=== PATIENT | male | born 1930 | race Caucasian/White ===

== ENCOUNTER 2019-08-29 20:46 | Observation (INO) | payer MEDICARE, BC ==
[2019-08-29] MEDS ORDERED: Sodium Chloride 0.9% 10 ML Syringe FLUSH PRN (21:01)
--- NOTE | 2019-08-29 21:04 | EDM.PDOC ---
ED HPI GENERAL MEDICAL PROBLEM - General Chief Complaint: Neuro Symptoms/Deficits Stated Complaint: DISORIENTED Time Seen by Provider: 08/29/19 20:52 Source of Information: Reports: Patient, Family History Limitations: Reports: Altered Mental Status - History of Present Illness INITIAL COMMENTS - FREE TEXT/NARRATIVE: Patient is brought by family members who described recent onset of slurred speech, loss of awareness of surroundings, disorientation. His last known well time was 1900 hrs. tonight. He's had no episodes like this previously. He had apparently gone outside, he says to go to their chicken coop, but was found seated on a garbage can away from that structure. Family members felt that the patient had slurred speech when they found him. Details of the event are not able to be recalled by the patient. He denies any other recent physical changes. Arm and leg strength seems usual for him. He does have a previous history of an ischemic stroke. He ate dinner at 1400 hrs. today uneventfully. No recent trauma. No medication changes. Family members have accompanied him but are not in the room at this time. Onset: Today, Sudden Duration: Hour(s): (one) Location: Reports: Generalized Improves with: Reports: None Worsens with: Reports: None Associated Symptoms: Reports: Confusion - Related Data Allergies Allergy/AdvReac Type Severity Reaction Status Date / Time clopidogrel bisulfate Allergy Cannot Verified 08/30/19 00:04 [From Plavix] Remember Iodinated Contrast Media Allergy Cannot Verified 08/30/19 00:04 [Iodinated Contrast Media - Remember IV Dye] latex Allergy Other Verified 08/30/19 00:04 Penicillins Allergy Cannot Verified 08/30/19 00:04 Remember Home Meds: Home Meds Aspirin 325 mg PO DAILY 08/13/13 [History] Isosorbide Mononitrate [Imdur] 60 mg PO DAILY 08/13/13 [History] Lisinopril 5 mg PO DAILY 08/13/13 [History] atorvaSTATin [Lipitor] 80 mg PO BEDTIME 08/13/13 [History] Past Medical History HEENT History: Reports: Hard of Hearing, Impaired Vision Other HEENT History: wears glasses Cardiovascular History: Reports: Bypass, High Cholesterol, Hypertension, IN Gastrointestinal History: Reports: GI Bleed, Hemorrhoids Musculoskeletal History: Reports: Arthritis, Back Pain, Chronic, Osteoarthritis , Other (See Below) Other Musculoskeletal History: bilateral knee pain Neurological History: Reports: CVA Endocrine/Metabolic History: Reports: Diabetes, Type II - Infectious Disease History Infectious Disease History: Reports: Chicken Pox, Measles, Mumps - Past Surgical History Cardiovascular Surgical History: Reports: Coronary Artery Bypass Neurological Surgical History: Reports: Lumbar Spine Musculoskeletal Surgical History: Reports: Other (See Below) Social & Family History - Family History Family Medical History: Noncontributory - Caffeine Use Caffeine Use: Reports: None ED ROS GENERAL - Review of Systems Review Of Systems: See Below Constitutional: Reports: No Symptoms Respiratory: Reports: No Symptoms Cardiovascular: Reports: No Symptoms Musculoskeletal: Reports: No Symptoms Neurological: Reports: Trouble Speaking, Difficulty Walking, Weakness (May be) Psychiatric: Reports: Confusion ED EXAM, NEURO - Physical Exam Exam: See Below Text/Narrative:: This is a composed adult male in the bed in room 3. He is somewhat hard of hearing but is able to answer my questions with only some hesitation. Exam Limited By: Altered Mental Status (Forgetfulness.) General Appearance: No Apparent Distress Eye Exam: Bilateral Eye: EOMI, Normal Fundi, Normal Inspection, PERRL Nose: Normal Inspection Throat/Mouth: Normal Inspection Respiratory/Chest: No Respiratory Distress Cardiovascular: Regular Rate, Rhythm Neurological: Oriented x 3 Back Exam: Normal Inspection Psychiatric: Normal Affect *Q Meaningful Use (ADM) - VTE *Q VTE Mechanical Contraindications *Q: At Risk for Falls VTE Pharmacological Contraindications *Q: Risk of Bleeding - VTE Risk Assess *Q Each Risk Factor Represents 3 Points: Age 75 Years or Greater Total Score 3 Point Risk Factors: 3 Course - Vital Signs Last Recorded V/S: Last Vital Signs Temp 35.7 C L 08/29/19 20:54 Pulse 67 08/29/19 23:54 Resp 16 08/29/19 20:54 BP 161/68 H 08/29/19 23:54 Pulse Ox 98 08/29/19 23:54 - Orders/Labs/Meds Orders: Active Orders 24 hr Category Date Time Status Patient Status [ADT] Routine ADT 08/29/19 23:24 Active Cardiac Monitoring [RC] Q6H Care 08/29/19 23:26 Active Oxygen Therapy [RC] PRN Care 08/29/19 23:24 Active Up With Assistance [RC] ASDIRECTED Care 08/29/19 23:24 Active VTE/DVT Education [RC] Per Unit Routine Care 08/29/19 23:24 Active Vital Signs [RC] Q4H Care 08/29/19 23:24 Active PT Evaluation and Treatment [CONS] Routine Cons 08/29/19 23:24 Active Consistent Carbohydrate Diet [DIET] Diet 08/29/19 Breakfast Active Acetaminophen [Tylenol] Med 08/29/19 23:24 Active 650 mg PO Q4H PRN Aspirin [Ecotrin] Med 08/30/19 09:00 Active 325 mg PO DAILY Isosorbide Mononitrate [Imdur] Med 08/30/19 09:00 Active 60 mg PO DAILY Sodium Chloride 0.9% [Normal Saline] 1,000 ml Med 08/29/19 23:30 Active IV ASDIRECTED Sodium Chloride 0.9% [Saline Flush] Med 08/29/19 21:01 Active 10 ml FLUSH ASDIRECTED PRN atorvaSTATin [Lipitor] Med 08/30/19 21:00 Active 80 mg PO BEDTIME lisinopriL [Prinivil] Med 08/30/19 09:00 Active 5 mg PO DAILY Saline Lock Insert [OM.PC] Routine Oth 08/29/19 21:01 Ordered Resuscitation Status Routine Resus Stat 08/29/19 23:24 Ordered EKG 12 Lead [EK] Routine Ther 08/29/19 20:59 Ordered Medication Orders Acetaminophen (Tylenol) 650 mg PO Q4H PRN PRN Reason: Pain (Mild 1-3)/fever Aspirin (Ecotrin) 325 mg PO DAILY [facility] Atorvastatin Calcium (Lipitor) 80 mg PO BEDTIME OWEN Sodium Chloride (Normal Saline) 1,000 mls @ 75 mls/hr IV ASDIRECTED OWEN Last Admin: 08/30/19 00:50 Dose: 75 mls/hr Isosorbide Mononitrate (Imdur) 60 mg PO DAILY [facility] Lisinopril (Prinivil) 5 mg PO DAILY OW[facility] Sodium Chloride (Saline Flush) 10 ml FLUSH ASDIRECTED PRN PRN Reason: Keep Vein Open Labs: Laboratory Tests 08/29/19 08/29/19 08/29/19 Range/Units 21:19 21:19 21:19 WBC 6.0 (4.5-11.0) K/uL RBC 3.54 L (4.30-5.90) M/uL Hgb 10.9 L (12.0-15.0) g/dL Hct 33.5 L (40.0-54.0) % MCV 95 (80-98) fL MCH 31 (27-31) pg MCHC 33 (32-36) % Plt Count 163 (150-400) K/uL Neut % (Auto) 41 (36-66) % Lymph % (Auto) 32 (24-44) % Gillespie % (Auto) 26 H (2-6) % Eos % (Auto) 1 L (2-4) % Baso % (Auto) 0 (0-1) % PT 11.3 (9.5-12.0) sec INR 1.05 (0.80-1.20) Sodium 137 L (140-148) mmol/L Potassium 4.7 (3.6-5.2) mmol/L Chloride 103 (100-108) mmol/L Carbon Dioxide 24 (21-32) mmol/L Anion Gap 14.7 H (5.0-14.0) mmol/L BUN 40 H (7-18) mg/dL Creatinine 1.5 H (0.8-1.3) mg/dL Est Cr Clr Drug Dosing 30.72 mL/min Estimated GFR (MDRD) 44 L (>60) Glucose 88 (74-106) mg/dL Calcium 8.6 (8.5-10.1) mg/dL Total Bilirubin 0.5 (0.2-1.0) mg/dL AST 15 (15-37) U/L ALT 26 (12-78) U/L Alkaline Phosphatase 103 (46-116) U/L Total Protein 6.9 (6.4-8.2) g/dL Albumin 3.5 (3.4-5.0) g/dL Globulin 3.4 (2.3-3.5) g/dL Albumin/Globulin Ratio 1.0 L (1.2-2.2) Meds: Medications Generic Name Dose Route Start Last Admin Trade Name Freq PRN Reason Stop Dose Admin Acetaminophen 650 mg 08/29/19 23:24 Tylenol PO Q4H PRN Pain (Mild 1-3)/fever Aspirin 325 mg 08/30/19 09:00 Ecotrin PO DAILY [facility] Atorvastatin Calcium 80 mg 08/30/19 21:00 Lipitor PO BEDTIME OWEN Sodium Chloride 1,000 mls @ 75 mls/hr 08/29/19 23:30 08/30/19 00:50 Normal Saline IV 75 mls/hr ASDIRECTED OWEN Administration Isosorbide Mononitrate 60 mg 08/30/19 09:00 Imdur PO DAILY [facility] Lisinopril 5 mg 08/30/19 09:00 Prinivil PO DAILY [facility] Sodium Chloride 10 ml 08/29/19 21:01 Saline Flush FLUSH ASDIRECTED PRN Keep Vein Open - Re-Assessments/Exams Free Text/Narrative Re-Assessment/Exam: 08/29/19 21:05 The patient states that the year is 1999, month is August, date is , day of the week is Thursday, President is [place]. An urgent noncontrast head CT scan will be obtained. Additional information to be obtained from family members. He will be considered a stroke patient. 08/29/19 21:06 08/30/19 03:[address] scan of the head showed no acute changes. A daughter is now present in the room and she states that when she initially came in the room, he did not recognize her. He now seems more like his usual neurologic self but from her assessment, something is still "off." I discussed with him that he likely had some type of TIA. I recommend that he be admitted for further monitoring and possibly additional imaging studies tomorrow. He is agreeable to admission. Case was reviewed with hospitalist general production worker who will arrange admission and further care. Departure - Departure Time of Disposition: 22:39 Disposition: Admitted As Inpatient 67 Condition: Good Clinical Impression: TIA (transient ischemic attack) - Discharge Information Sepsis Event Note - Evaluation Sepsis Screening Result: No Definite Risk - Focused Exam Vital Signs: Vital Signs Temp Pulse Resp BP Pulse Ox 08/29/19 23:24 66 201/84 H 97 08/29/19 22:45 63 181/67 H 08/29/19 21:57 64 186/68 H 08/29/19 21:36 64 164/72 H 08/29/19 20:54 35.7 C L 63 16 169/70 H 92 L Date Exam was Performed: 08/30/19 Time Exam was Performed: 02:56 - My Orders Last 24 Hours: My Active Orders 08/29/19 20:59 EKG 12 Lead [EK] Routine 08/29/19 21:01 Sodium Chloride 0.9% [Saline Flush] 10 ml FLUSH ASDIRECTED PRN Saline Lock Insert [OM.PC] Routine - Assessment/Plan Last 24 Hours: My Active Orders 08/29/19 20:59 EKG 12 Lead [EK] Routine 08/29/19 21:01 Sodium Chloride 0.9% [Saline Flush] 10 ml FLUSH ASDIRECTED PRN Saline Lock Insert [OM.PC] Routine
--- NOTE | 2019-08-29 21:28 | CRLCT ---
INDICATION: Disoriented TECHNIQUE: Head CT without contrast. COMPARISON: None FINDINGS: CSF spaces: Within normal limits for age. Brain parenchyma and extra-axial spaces: There are nonspecific low attenuation white matter changes consistent with chronic microvascular disease. Small chronic lacunar infarcts are in the basal ganglia. No sign of mass, hemorrhage, or midline shift. Skull base and calvarium: The visualized paranasal sinuses and mastoid air cells demonstrate no acute or significant findings. The visualized orbits are grossly unremarkable. No skull fractures. IMPRESSION: No acute or significant findings.No sign of acute CVA or hemorrhage. Dictated by Anil Leger MD @ 08/29/2019 9:27:25 PM Please note that all CT scans at this facility use dose modulation, iterative reconstruction, and/or weight-based dosing when appropriate to reduce radiation dose to as low as reasonably achievable. Dictated by: Anil Leger MD @ 08/29/2019 21:27:46 (Electronically Signed)
[2019-08-29] MEDS ORDERED: Acetaminophen 325 MG Tab PO PRN (23:24)
--- NOTE | 2019-08-30 00:41 | HP ---
CHIEF COMPLAINT: Confusion. HISTORY OF PRESENT ILLNESS: This is an 89-year-old who was at home, apparently all of a sudden was confused. Normally, he walks with crutches, had sustained a long-standing injury to his back, but forgot to use his crutches and tried to walk, and he ended up resting and actually fell into a garbage can. He had a couple of episodes where he fell within the last week to week and a half and was confused, but then did get back to his baseline. He was confused, did not really know what he was doing. Apparently, his family said that he was slurring his speech, although it sounds like it is back to his baseline now. It sounds like he has had previous stroke in the past with left-sided involvement, was brought into the emergency room for further evaluation. He was evaluated by the emergency room physician. By the time he was here, he was acting his normal self and was able to answer questions. Initially, when he did arrive, he did not recognize his daughter, but then now he does. He denied any pain. No chest pain or trouble breathing. PAST MEDICAL HISTORY: 1. History of I believe a couple of strokes in the past with left-sided involvement. Within the last week, he has had a couple of similar episodes of this. They did not bring him in, that he had fallen and was confused. 2. Coronary artery disease. Also he has had open-heart surgery. 3. Type 2 diabetes mellitus that they are controlling with diet. 4. Injury to his back and ever since then, he has used crutches for years. CURRENT MEDICATIONS: Aspirin 325 mg daily, atorvastatin 80 mg at bedtime, isosorbide 60 mg daily, and lisinopril 5 mg daily. ALLERGIES: CLOPIDOGREL, IODINATED CONTRAST MATERIAL, LATEX, AND PENICILLIN. SOCIAL HISTORY: Never smoked. No alcohol use. FAMILY HISTORY: He does not really know. Daughter does not really know. He does not think that anybody has had strokes. REVIEW OF SYSTEMS: Denies headaches, vision changes, or upper respiratory symptoms. No chest pain, shortness of breath, or cough. No nausea, vomiting, diarrhea, or constipation. No urinary problems reported. No swelling in his legs. No skin problems. NEUROLOGIC: He states that his legs felt weak. He thought it was both. PHYSICAL EXAMINATION: VITAL SIGNS: Weight 70 kg, temp 35.7, pulse 63, blood pressure 169/70, respirations 16, and O2 saturation 92% on room air. NEUROLOGIC: The patient is hard of hearing, but otherwise seems to be alert and oriented at this point. When he first arrived, he was confused as to who the president was. He did not recognize his daughter, but now he does. Cranial nerves 2 through 12 are grossly intact, other than he is hard of hearing. He did have weakness to his left arm, but his daughter states that this is pretty much his baseline. Hdosam-sosb-rhiecv was slower and weaker on the left side compared to the right, which was intact. Agent Producer strength to both hands was equal and intact. Dorsiflexion and plantar flexion of his ankle were full and symmetric bilaterally. ENT: Ears are clear other than just a small amount of wax. Pharynx is clear with no dentition. NECK: Supple. No adenopathy, thyromegaly, JVD, or bruits. LUNGS: Clear. HEART: Regular without murmurs. ABDOMEN: Soft and nontender. No mass or organomegaly palpated. EXTREMITIES: No edema. Apparently has a sore on the bottom of his right foot that he is seeing Podiatry for. SKIN: Otherwise unremarkable. IMAGING: CT scan of his brain was unremarkable with no acute findings. LABORATORY DATA: White count was 6.0, hemoglobin 10.9, and platelets 163,000. PT was 11.3 with an INR of 1.05. Sodium 137, potassium 4.7, chloride 103, BUN was 40, creatinine 1.5, and glucose 88. Liver functions were normal. ASSESSMENT: 1. Confusion with weakness with previous strokes in the past. He seems to be back to his baseline according to his daughter. It sounds like he has probably had a TIA, and maybe has had a couple of other episodes earlier this week. He does take aspirin, which we will continue. It looks like he is allergic to Plavix. We will admit him under observation and watch him overnight. I will have Physical Therapy see him in the morning if possible. Otherwise, we will continue with the current medications. 2. Type 2 diabetes mellitus, diet controlled. 3. Coronary artery disease, status post open heart surgery in the past. I am not sure exactly what they did. It is just per patient report. 4. History of a couple of strokes in the past that I believe was essentially evaluated in [place] and also in the [facility]. I did talk to him about Code Status, and they do desire full code at this time. We will admit him under observation. Anticipate less than 2 midnight stays. Chau Hudson MD /[phone]
[2019-08-30] MEDS: Sodium Chloride 0.9% 1,000 ML IV SCH ×2 (00:50→12:28)
[2019-08-30] MEDS: Aspirin 325 MG Tab.EC PO SCH (08:29)
[2019-08-30] MEDS ORDERED: Lisinopril 5 MG Tab PO SCH (09:00)
[2019-08-30] MEDS ORDERED: Isosorbide Mononitrate 30 MG Tab.ER PO SCH (09:00)
[2019-08-30] MEDS: LISINOPRIL 2.5 MG PO SCH (12:27)
[2019-08-30] MEDS: ISOSORBIDE MONONITRATE 30 MG PO SCH (12:32)
--- NOTE | 2019-08-30 13:10 | PCM.PN ---
- General Info Date of Service: 08/30/19 Subjective Update: Mr. Steele is an 89-year-old gentleman who was admitted through the emergency department to observation status for further evaluation of probable TIA. He was found by his daughter last night to be sitting in a garbage can and at the time had very garbled speech associated with confusion. No other focal neurologic deficits were identified. Over the past month he has had 2 other falls but there have been no obvious neurologic deficits noted with either of those events. By the time he arrived in the emergency department he was felt to be back to baseline, CT scan of the head without contrast showed no acute abnormalities. He is remained stable through the night with no neurologic deficits. 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 Functional Status: Reports: Tolerating Diet, Urinating - Review of Systems General: Reports: No Symptoms HEENT: Reports: No Symptoms Pulmonary: Reports: No Symptoms Cardiovascular: Reports: No Symptoms Gastrointestinal: Reports: No Symptoms - Patient Data Vitals - Most Recent: Last Vital Signs Temp 96.9 F 08/30/19 11:00 Pulse 62 08/30/19 12:37 Resp 17 08/30/19 11:00 BP 141/55 H 08/30/19 12:32 Pulse Ox 93 L 08/30/19 11:00 Weight - Most Recent: 155 lb I&O - Last 24 Hours: Intake & Output 08/29/19 08/30/19 08/30/19 22:59 06:59 14:59 Intake Total 1180 Balance 1180 Lab Results Last 24 Hours: Laboratory Results - last 24 hr 08/29/19 08/29/19 08/29/19 Range/Units 21:19 21:19 21:19 WBC 6.0 (4.5-11.0) K/uL RBC 3.54 L (4.30-5.90) M/uL Hgb 10.9 L (12.0-15.0) g/dL Hct 33.5 L (40.0-54.0) % MCV 95 (80-98) fL MCH 31 (27-31) pg MCHC 33 (32-36) % Plt Count 163 (150-400) K/uL Neut % (Auto) 41 (36-66) % Lymph % (Auto) 32 (24-44) % Hitchcock % (Auto) 26 H (2-6) % Eos % (Auto) 1 L (2-4) % Baso % (Auto) 0 (0-1) % PT 11.3 (9.5-12.0) sec INR 1.05 (0.80-1.20) Sodium 137 L (140-148) mmol/L Potassium 4.7 (3.6-5.2) mmol/L Chloride 103 (100-108) mmol/L Carbon Dioxide 24 (21-32) mmol/L Anion Gap 14.7 H (5.0-14.0) mmol/L BUN 40 H (7-18) mg/dL Creatinine 1.5 H (0.8-1.3) mg/dL Est Cr Clr Drug Dosing 30.72 mL/min Estimated GFR (MDRD) 44 L (>60) Glucose 88 (74-106) mg/dL Calcium 8.6 (8.5-10.1) mg/dL Total Bilirubin 0.5 (0.2-1.0) mg/dL AST 15 (15-37) U/L ALT 26 (12-78) U/L Alkaline Phosphatase 103 (46-116) U/L Total Protein 6.9 (6.4-8.2) g/dL Albumin 3.5 (3.4-5.0) g/dL Globulin 3.4 (2.3-3.5) g/dL Albumin/Globulin Ratio 1.0 L (1.2-2.2) Med Orders - Current: Current Medications Acetaminophen (Tylenol) 650 mg PO Q4H PRN PRN Reason: Pain (Mild 1-3)/fever Aspirin (Ecotrin) 325 mg PO DAILY [facility] Last Admin: 08/30/19 08:29 Dose: 325 mg Atorvastatin Calcium (Lipitor) 80 mg PO BEDTIME [facility] Isosorbide Mononitrate (Imdur) 30 mg PO DAILY [facility] Last Admin: 08/30/19 12:32 Dose: 30 mg Lisinopril (Prinivil) 5 mg PO DAILY [facility] Last Admin: 08/30/19 12:27 Dose: 5 mg Sodium Chloride (Saline Flush) 10 ml FLUSH ASDIRECTED PRN PRN Reason: Keep Vein Open Discontinued Medications Sodium Chloride (Normal Saline) 1,000 mls @ 75 mls/hr IV ASDIRECTED [facility] Last Admin: 08/30/19 12:28 Dose: 75 mls/hr Isosorbide Mononitrate (Imdur) 60 mg PO DAILY [facility] - Exam Quality Assessment: DVT Prophylaxis General: Alert, Oriented, Cooperative, No Acute Distress Lungs: Clear to Auscultation, Normal Respiratory Effort Cardiovascular: Regular Rate, Irregular Rhythm, Murmurs GI/Abdominal Exam: Soft, Non-Tender, No Organomegaly, No Distention Skin: Warm, Dry, Intact Neurological: No New Focal Deficit Sepsis Event Note - Evaluation Sepsis Screening Result: No Definite Risk - Focused Exam Vital Signs: Vital Signs Temp Pulse Resp BP BP Pulse Ox 08/30/19 12:37 62 08/30/19 12:32 141/55 H 08/30/19 12:27 141/55 H 08/30/19 11:00 96.9 F 68 17 141/55 H 93 L 08/30/19 07:00 96.7 F L 66 14 146/62 H 96 08/30/19 03:00 66 15 128/68 95 Date Exam was Performed: 08/30/19 Time Exam was Performed: 13:04 - Problem List Review Problem List Initiated/Reviewed/Updated: Yes - My Orders Last 24 Hours: My Active Orders 08/30/19 13:01 Brain wo Cont [MR] Stat Carotid Comp [US] Stat Echo Comp wo Cont [US] Stat 08/30/19 13:03 Convert IV to Saline Lock [OM.PC] Routine - Plan Plan:: ASSESSMENT AND PLAN POSSIBLE TIA-he was walking in the kitchen when apparently became weak and the closest thing to sit on was the garbage can. Daughter found him sitting in the garbage can and was noted to have garbled speech and confusion. He was felt to be normal when he arrived in the emergency department with no obvious neurologic deficits. CT scan of the head without contrast showed no acute abnormalities. He has had a previous history of cerebrovascular disease dating back to about 6 years ago. Previously disabled because of a spine injury and uses crutches to ambulate. -MRI of the brain without contrast, secondary to creatinine clearance of 30 -Carotid Doppler studies -Echocardiogram SECOND DEGREE AV BLOCK TYPE I-obvious rhythm abnormality with 2 bradycardia, asymptomatic -Continue to monitor MAINTENANCE ISSUES -DVT prophylaxis; Lovenox 40 mg subcu daily -GI prophylaxis; not indicated -Segura catheter; not indicated -Nutrition; regular diet -Nicotine dependence; not required CODE STATUS-FULL CODE ADMISSION STATUS-this patient will be admitted to observation status, expect no more than a one night hospital stay for evaluation and management of problems as outlined above. DISPOSITION-anticipate discharge to home after the hospital stay. PRIMARY CARE PROVIDER-Dr. Lobo
--- NOTE | 2019-08-30 14:32 | US ---
Carotid Comp INDICATION: Recent TIA with garbled speech and confusion COMPARISON: None. FINDINGS RIGHT: There is some intimal thickening in the common carotid artery with mild to moderate plaque formation in the bifurcation.. Peak systolic velocity in the internal carotid artery is 99 cm/sec. Diastolic velocity is 12 cm/sec. ICA/CCA ratio is 1.2. LEFT: There is intimal thickening in the left common carotid artery. There is some [id number] plaque formation in the carotid bifurcation. Peak systolic velocity in the internal carotid artery is 121 cm/sec. Diastolic velocity is 28 cm/sec. ICA/CCA ratio is 1.2. External carotid arteries are patent bilaterally. Antegrade flow in both vertebral arteries. IMPRESSION: Mild to moderate plaque formation in both carotid bifurcations Right ICA velocities suggest stenosis less than 50% Left ICA velocities are somewhat higher and suggest stenosis close to 50% NASCET criteria used.
[2019-08-30] MEDS ORDERED: Enoxaparin 30 MG/0.3 ML Syringe SUBCUT SCH (16:00)
[2019-08-30] MEDS ORDERED: atorvaSTATin 20 MG Tab PO SCH (21:00)
[2019-08-31] MEDS: Aspirin 325 MG Tab.EC PO SCH (08:17)
[2019-08-31] MEDS: ISOSORBIDE MONONITRATE 30 MG PO SCH (08:17)
[2019-08-31] MEDS: LISINOPRIL 2.5 MG PO SCH (08:17)
[2019-08-31 10:18] VITALS: BP 137/46; PULSE 67
--- NOTE | 2019-08-31 10:23 | MR ---
Brain wo Cont CLINICAL HISTORY: TIA with garbled speech and confusion COMPARISON: CT brain 08/29/2019 TECHNIQUE: Multiple axial, sagittal, and coronal images were obtained on a 1.5 T magnet with multiweighted sequences, and diffusion imaging without contrast. FLAIR image series was attempted but stopped due to motion FINDINGS: There is moderate motion artifact. There are 3 lacunar type infarcts involving the left the basal ganglia and thalamus. There is a lacunar type infarct in the right the thalamus. There is no focal mass lesion. There is no hemmorhage or extraaxial collection. There is no restricted diffusion. The basal cisterns and sulci over the convexities are prominent. The ventricles are prominent. IMPRESSION: Moderate atrophy Multiple remote lacunar type infarcts bilaterally No mass effect or hemorrhage
--- NOTE | 2019-08-31 12:01 | PCM.DCSUM1 ---
Discharge Summary - Hospital Course Brief History: Mr. Steele is an 89-year-old gentleman who was admitted to observation status through the emergency department for further evaluation of transient garbled speech and confusion, thought secondary to a TIA. - Discharge Data Discharge Date: 08/31/19 Discharge Disposition: Home, W Home Health Agency 06 Condition: Stable - Referral to Home Health Date of Face to Face Encounter: 08/31/19 Reason for Homebound Status: Weakness, chronic low back pain and lower extremity weakness Primary Care Physician: Stef Lobo MD Skilled Need: Schedule nursing visits, home physical therapy and Occupational Therapy - Patient Summary/Data Consults: Consultations 08/29/19 23:24 PT Evaluation and Treatment [CONS] Routine Please Evaluate and Treat. PT Reason for Consult: tia This query below is only for informational purposes and is not editable. Hospital Course: Mr. Steele is an 89-year-old gentleman who was admitted through the emergency department to observation status for further evaluation of probable TIA. He was found by his daughter last night to be sitting in a garbage can and at the time had very garbled speech with associated with confusion. No other focal neurologic deficits were identified. Over the past month he has had 2 other falls but there have been no obvious neurologic deficits noted with either of those events. By the time he arrived in the emergency department he was felt to be back to baseline, CT scan of the head without contrast showed no acute abnormalities. He remained stable through the night with no neurologic deficits. 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 During hospitalization he had no further episodes of significant bradycardia or symptoms associated with it. We discussed further evaluation and patient and family decided to pursue further studies concerning his probable TIA. MRI of the head without contrast was obtained because of his chronic kidney disease and inability to use contrast. 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 Carotid Doppler studies were also obtained because of his chronic renal insufficiency and showed evidence of moderate stenosis, nothing worse than 50%. Echocardiogram was obtained, preliminary report was available prior to discharge, formal report is still pending. Preliminary report shows severely decreased left ventricular function with estimated ejection fraction of 25 to 30%, grade 2 diastolic dysfunction, biatrial enlargement, and right-sided enlargement. There was no evidence of cardiac thrombus as a source of emboli. He was seen and evaluated by physical therapy during hospitalization and is encouraged to use a walker after discharged home. Activity will be as tolerated and he will be on a low- sodium diet. Follow-up appointment will be scheduled with Dr. Lobo within 1 week. - Patient Instructions Diet: Low Sodium Activity: As Tolerated Other/Special Instructions: Please schedule follow-up appointment with Dr. Lobo within 1 week. - Discharge Plan *PRESCRIPTION DRUG MONITORING PROGRAM REVIEWED*: Not Applicable *COPY OF PRESCRIPTION DRUG MONITORING REPORT IN PATIENT DONNELL: Not Applicable Home Medications: Home Meds Aspirin 325 mg PO DAILY 08/13/13 [History] Isosorbide Mononitrate [Imdur] 30 mg PO DAILY 08/13/13 [History] Lisinopril 5 mg PO DAILY 08/13/13 [History] atorvaSTATin [Lipitor] 80 mg PO BEDTIME 08/13/13 [History] Referrals: Stef Lobo MD [Primary Care Provider] - - Discharge Summary/Plan Comment DC Time >30 min.: No - Patient Data Vitals - Most Recent: Last Vital Signs Temp 96.7 F L 08/31/19 10:16 Pulse 67 08/31/19 10:16 Resp 16 08/31/19 10:16 BP 137/46 L 08/31/19 10:16 Pulse Ox 96 08/31/19 10:16 Weight - Most Recent: 155 lb I&O - Last 24 hours: Intake & Output 08/30/19 08/31/19 08/31/19 22:59 06:59 14:59 Intake Total 200 480 Balance 200 480 Med Orders - Current: Current Medications Acetaminophen (Tylenol) 650 mg PO Q4H PRN PRN Reason: Pain (Mild 1-3)/fever Aspirin (Ecotrin) 325 mg PO DAILY [facility] Last Admin: 08/31/19 08:17 Dose: 325 mg Atorvastatin Calcium (Lipitor) 80 mg PO BEDTIME [facility] Last Admin: 08/30/19 20:41 Dose: Not Given Enoxaparin Sodium (Lovenox) 30 mg SUBCUT Q24H [facility] Last Admin: 08/30/19 15:58 Dose: 30 mg Isosorbide Mononitrate (Imdur) 30 mg PO DAILY [facility] Last Admin: 08/31/19 08:17 Dose: 30 mg Lisinopril (Prinivil) 5 mg PO DAILY [facility] Last Admin: 08/31/19 08:17 Dose: 5 mg Sodium Chloride (Saline Flush) 10 ml FLUSH ASDIRECTED PRN PRN Reason: Keep Vein Open Discontinued Medications Sodium Chloride (Normal Saline) 1,000 mls @ 75 mls/hr IV ASDIRECTED [facility] Last Admin: 08/30/19 12:28 Dose: 75 mls/hr Isosorbide Mononitrate (Imdur) 60 mg PO DAILY [facility] Last Admin: 08/30/19 19:46 Dose: Not Given - Exam General: Reports: Alert, Oriented, Cooperative, No Acute Distress Lungs: Reports: Clear to Auscultation, Normal Respiratory Effort Cardiovascular: Reports: Regular Rate, Regular Rhythm, No Murmurs GI/Abdominal Exam: Soft, Non-Tender, No Organomegaly, No Distention Neurological: Reports: No New Focal Deficit, Other (Chronic lower extremity weakness and imbalance) *Q Meaningful Use (DIS) - VTE *Q VTE Mechanical Contraindications *Q: At Risk for Falls VTE Pharmacological Contraindications *Q: Risk of Bleeding
== END 2019-08-31 13:35 | disposition home health service (06) ==
LOC: JP.ED 20:46 → JP.ICU 23:40 → JP.MS 08-30 15:26
PROVIDERS: ADMIT Family Medicine; ATTEND Hospitalist
DX: R41.0 Disorientation, unspecified (principal); R53.1 Weakness; R47.89 Other speech disturbances; I44.1 Atrioventricular block, second degree; E78.00 Pure hypercholesterolemia, unspecified; I10 Essential (primary) hypertension; Z98.890 Other specified postprocedural states; I25.10 Atherosclerotic heart disease of native coronary artery without angina pectoris; E11.9 Type 2 diabetes mellitus without complications; Z79.82 Long term (current) use of aspirin; Z79.899 Other long term (current) drug therapy; Z88.8 Allergy status to other drugs, medicaments and biological substances; Z88.0 Allergy status to penicillin; Z91.040 Latex allergy status; Z91.041 Radiographic dye allergy status; Z86.73 Personal history of transient ischemic attack (TIA), and cerebral infarction without residual deficits
CPT/HCPCS: 36415; 70450; 70551; 80053; 85025; 85610; 93005; 93010; 93306; 93880; 97110; 97161; 97530; 99217; 99224; 99284; 99285; A9270; J1650; J7030